=== PATIENT | male | born 1975 | race Caucasian/White ===

== ENCOUNTER 2018-11-26 12:34 | Inpatient (IN) | payer MEDICAID, OTHER ==
[~2018-11-26] VITALS: Ht 182.9 cm; Wt 83.2 kg
[~2018-11-26 12:34] MED LIST: CEPH-376 PO; CLIN300C8 PO; DOXY100T10 PO; OXYC5TAB3 PO
[2018-11-26] MEDS ORDERED: OXYcodone/APAP 5/325MG TABLET ONE (12:49)
[2018-11-26] MEDS ORDERED: OXYcodone/APAP 5/325MG TABLET PO ONE (13:00)
[2018-11-26 13:01] LABS: BASOPHILS # (AUTO) 0.04 x10^3/uL (0-0.1); BASOPHILS % (AUTO) 0 % (0-1); EOSINOPHILS % (AUTO) 1 % (1-7); LYMPHOCYTES # (AUTO) 1.43 x10^3/uL (1-3.4); LYMPHOCYTES % (AUTO) 14 % (22-44); MD NO; MEAN CORPUSCULAR HEMOGLOBIN 28.2 pg (27.5-34.5); MEAN CORPUSCULAR HGB CONC 32.7 g/dL (33.2-36.2); MEAN CORPUSCULAR VOLUME 86.3 fL (81-97); MEAN PLATELET VOLUME 7.6 fL (7.4-10.4); MONOCYTES % (AUTO) 4 % (2-9); NEUTROPHILS # (AUTO) 8.38 x10^3/uL (1.8-6.8); NEUTROPHILS % (AUTO) 81 % (42-75); PLATELET COUNT 271 x10^3/uL (130-400); RED BLOOD COUNT 5.46 x10^6/uL (4.38-5.82); RED CELL DISTRIBUTION WIDTH 17.2 % (9.4-14.8)
[2018-11-26 13:13] LABS: ALANINE AMINOTRANSFERASE 51 U/L (12-78); ALBUMIN 3.5 g/dL (3.4-5.0); ANION GAP 7 mmol/L (5-15); CALCIUM 8.7 mg/dL (8.5-10.1); CHLORIDE 104 mmol/L (98-107)
[2018-11-26 13:15] LABS: ALKALINE PHOSPHATASE 103 U/L (45-117); BILIRUBIN,TOTAL 0.4 mg/dL (0.2-1.0); TOTAL PROTEIN 7.8 g/dL (6.4-8.2)
[2018-11-26 13:19] LABS: SALICYLATE LEVEL < 1.7 mg/dL (2.8-20.0)
[2018-11-26] MEDS ORDERED: ONDANSETRON 2MG/ML, 2ML ONE ×2 (13:41→22:44)
[2018-11-26] MEDS ORDERED: HYDROmorphone 2 MG/ML, 1ML ONE (13:42)
--- NOTE | 2018-11-26 13:45 | NUR ---
pt to xray
[2018-11-26 13:59] LABS: AMPHETAMINE SCREEN, URINE Negative (Negative); BARBITURATE SCREEN, URINE Negative (Negative); CANNABINOID SCREEN, URINE Negative (Negative); COCAINE SCREEN, URINE Negative (Negative); METHADONE SCREEN, URINE Negative (Negative); OPIATE SCREEN, URINE Negative (Negative)
[2018-11-26 14:00] LABS: BENZODIAZEPINE SCREEN, URINE Negative (Negative)
[2018-11-26] MEDS ORDERED: HYDROmorphone 1 MG/ML, 1ML INJ IV ONE (14:00)
[2018-11-26] MEDS ORDERED: ONDANSETRON 2MG/ML, 2ML IVPush ONE (14:00)
--- NOTE | 2018-11-26 14:20 | NUR ---
PT RETURNED FROM RAD, TECH AT BEDSIDE TO ESTABLISH IV
--- NOTE | 2018-11-26 14:24 | NUR ---
UNABLE TO ESTABLISH IV AT THIS TIME, TECH TO GET USIV LINE PLACEMENT
--- NOTE | 2018-11-26 14:59 | NUR ---
US IV ESTABLISHED AND PT MEDICATED PER AUG. AWAITING ORTHO CONSULT
--- NOTE | 2018-11-26 16:27 | NUR ---
PER DIRECTOR OF PROFESSIONAL SERVICES, EMT TO WAIT TO APPLY SPLINTS UNTIL AFTER CT SCANS
--- NOTE | 2018-11-26 16:53 | NUR ---
PT TO CT
[2018-11-26] MEDS ORDERED: BISACODYL 10 MG SUPP PR PRN (17:00)
[2018-11-26] MEDS ORDERED: ACETAMINOPHEN 325 MG TABLET PO PRN (17:00)
[2018-11-26] MEDS ORDERED: POLYETHYLENE GLYCOL 17 GM PACKET PO PRN (17:00)
[2018-11-26] MEDS ORDERED: LABETALOL 5MG/ML, 20ML IVPush PRN (17:00)
[2018-11-26] MEDS ORDERED: ONDANSETRON 2MG/ML, 2ML IVPush PRN (17:00)
[2018-11-26] MEDS ORDERED: ONDANSETRON ODT 4 MG PO PRN (17:00)
[2018-11-26] MEDS ORDERED: IBUPROFEN 600 MG TABLET PO PRN (17:00)
[2018-11-26] MEDS ORDERED: OXYcodone/APAP 5/325MG TABLET PO PRN (17:00)
--- NOTE | 2018-11-26 17:15 | NUR ---
TELEPSYCH CALLED WHILE PT AT CT. WILL NOTIFY THEM WHEN PT RETURNS.
--- NOTE | 2018-11-26 17:29 | NUR ---
ADMITTING MD AT BEDSIDE
--- NOTE | 2018-11-26 17:48 | NUR ---
REPORT TO TALYA HAJI
--- NOTE | 2018-11-26 17:48 | NUR ---
PER ADMITTING PRINT PRODUCTION MANAGER, OUR TECHS NOT TO DO SPLINTS AND THEY WILL COMPLETE UPSTAIRS
[2018-11-26 17:58] LABS: HEMOGLOBIN A1C 5.5 % (4.2-6.3)
[2018-11-26] MEDS ORDERED: HYDROXYZINE PAMOATE 50MG CAP PO PRN (18:00)
[2018-11-26] MEDS: ENOXAPARIN 40 MG/0.4 ML SQ SCH (18:37)
[2018-11-26] MEDS ORDERED: FENTANYL PF 250 MCG/5ML ONE (21:34)
[2018-11-26] MEDS ORDERED: CEFAZOLIN 1,000 MG ONE ×2 (22:22)
[2018-11-26] MEDS ORDERED: DEXAMETHASONE 4 MG/ML, 1ML ONE (22:44)
[2018-11-26] MEDS ORDERED: FENTANYL PF 100 MCG/2ML IV PRN (23:00)
[2018-11-26] MEDS ORDERED: ONDANSETRON 2MG/ML, 2ML IV PRN (23:00)
[2018-11-26] MEDS ORDERED: OXYcodone 5 MG/5 ML ORAL.SOL UDC PO PRN (23:00)
[2018-11-26] MEDS ORDERED: hydrALAzine 20 MG/ML, 1ML IV PRN (23:00)
[2018-11-26] MEDS ORDERED: PROMETHAZINE 25 MG/ML, 1ML IV PRN (23:00)
[2018-11-26] MEDS ORDERED: LABETALOL 5MG/ML, 20ML IV PRN (23:00)
[2018-11-26] MEDS ORDERED: ROCURONIUM 10MG/ML,5ML ONE (23:19)
[2018-11-26] MEDS ORDERED: SUCCINYLCHOLINE 20 MG/ML, 10ML ONE (23:19)
[2018-11-26] MEDS ORDERED: PROPOFOL 10 MG/ML, 20ML ONE (23:19)
[2018-11-26] MEDS ORDERED: KETOROLAC 30 MG/1 ML ONE (23:28)
[2018-11-27] MEDS ORDERED: FENTANYL PF 100 MCG/2ML ONE (00:10)
[2018-11-27] MEDS ORDERED: HYDROmorphone 2 MG/ML, 1ML ONE (00:10)
[2018-11-27] MEDS: HYDROmorphone 2 MG/ML, 1ML IVPush PRN ×10 (00:21→19:35)
[2018-11-27] MEDS ORDERED: LORazepam 2 MG/ML, 1ML ONE (00:51)
[2018-11-27] MEDS ORDERED: LORazepam 2 MG/ML, 1ML IVPush PRN (01:00)
[2018-11-27 01:15] VITALS: BP 143/97
[2018-11-27] MEDS: ARIPIPRAZOLE 10 MG TABLET PO SCH ×2 (01:25→19:36)
[2018-11-27] MEDS: DOXEPIN 25 MG CAPSULE PO SCH ×2 (01:25→19:35)
[2018-11-27] MEDS ORDERED: CEFAZOLIN PMX 1GM/50ML 50 ML IV SCH (02:00)
[2018-11-27] MEDS ORDERED: OXYcodone/APAP 10/325MG TABLET PO PRN (02:30)
[2018-11-27 03:56] VITALS: BP 125/73
[2018-11-27] MEDS: CEFAZOLIN PMX 1GM/50ML 50 ML IV SCH ×3 (06:01→21:30)
[2018-11-27 08:45] VITALS: BP 135/79
[2018-11-27] MEDS: SENNA/DOCUSATE TABLET PO SCH (09:09)
[2018-11-27] MEDS: NAPROXEN 500 MG TABLET PO SCH ×2 (12:06→19:36)
[2018-11-27] MEDS: OXYcodone IR 5MG TABLET PO PRN ×3 (12:06→21:30)
[2018-11-27] MEDS: ACETAMINOPHEN 500 MG TABLET PO SCH ×3 (12:07→23:48)
[2018-11-27 14:20] VITALS: BP 131/85
[2018-11-27] MEDS: ENOXAPARIN 40 MG/0.4 ML SQ SCH (17:36)
[2018-11-27 20:56] VITALS: BP 127/76
[2018-11-27 23:49] VITALS: BP 156/93
[2018-11-28] MEDS: HYDROmorphone 2 MG/ML, 1ML IVPush PRN ×5 (00:07→23:15)
[2018-11-28] MEDS: OXYcodone IR 5MG TABLET PO PRN ×5 (03:07→21:51)
[2018-11-28 06:14] LABS: BASOPHILS # (AUTO) 0.03 x10^3/uL (0-0.1); BASOPHILS % (AUTO) 0 % (0-1); EOSINOPHILS # (AUTO) 0.23 x10^3/uL (0-0.4); EOSINOPHILS % (AUTO) 3 % (1-7); LYMPHOCYTES % (AUTO) 27 % (22-44); MD NO; MEAN CORPUSCULAR HEMOGLOBIN 28.1 pg (27.5-34.5); MEAN CORPUSCULAR HGB CONC 31.9 g/dL (33.2-36.2); MEAN CORPUSCULAR VOLUME 88.1 fL (81-97); MEAN PLATELET VOLUME 7.6 fL (7.4-10.4); MONOCYTES # (AUTO) 0.75 x10^3/uL (0.2-0.8); MONOCYTES % (AUTO) 9 % (2-9); NEUTROPHILS # (AUTO) 4.91 x10^3/uL (1.8-6.8); NEUTROPHILS % (AUTO) 61 % (42-75); PLATELET COUNT 183 x10^3/uL (130-400); RED BLOOD COUNT 4.17 x10^6/uL (4.38-5.82); RED CELL DISTRIBUTION WIDTH 17.3 % (9.4-14.8)
[2018-11-28 06:21] LABS: ANION GAP 4 mmol/L (5-15); CALCIUM 8.1 mg/dL (8.5-10.1); CHLORIDE 109 mmol/L (98-107); CREATININE 0.91 mg/dL (0.7-1.3)
[2018-11-28] MEDS: ACETAMINOPHEN 500 MG TABLET PO SCH ×3 (06:47→18:28)
[2018-11-28 07:58] VITALS: BP 153/89
[2018-11-28] MEDS: POLYETHYLENE GLYCOL 17 GM PACKET PO SCH (09:00)
[2018-11-28] MEDS: GABAPENTIN 100 MG CAPSULE PO SCH ×3 (09:13→21:51)
[2018-11-28] MEDS: NAPROXEN 500 MG TABLET PO SCH ×2 (09:13→21:50)
[2018-11-28] MEDS: SENNA/DOCUSATE TABLET PO SCH (09:13)
[2018-11-28 12:50] VITALS: BP 157/92
[2018-11-28] MEDS: ENOXAPARIN 40 MG/0.4 ML SQ SCH (17:48)
[2018-11-28 21:24] VITALS: BP 158/100
[2018-11-28] MEDS: DOXEPIN 25 MG CAPSULE PO SCH (21:50)
[2018-11-28] MEDS: ARIPIPRAZOLE 10 MG TABLET PO SCH (21:51)
[2018-11-29 02:13] VITALS: BP 160/106
[2018-11-29] MEDS: ACETAMINOPHEN 500 MG TABLET PO SCH ×5 (02:36→23:38)
[2018-11-29] MEDS: OXYcodone IR 5MG TABLET PO PRN ×5 (02:36→21:49)
[2018-11-29 07:03] VITALS: BP 159/108
[2018-11-29] MEDS: GABAPENTIN 100 MG CAPSULE PO SCH ×3 (08:58→20:40)
[2018-11-29] MEDS: POLYETHYLENE GLYCOL 17 GM PACKET PO SCH (08:58)
[2018-11-29] MEDS: SENNA/DOCUSATE TABLET PO SCH (08:58)
[2018-11-29] MEDS: NAPROXEN 500 MG TABLET PO SCH ×2 (08:58→20:40)
[2018-11-29] MEDS: HYDROmorphone 2 MG/ML, 1ML IVPush PRN ×4 (08:58→22:55)
[2018-11-29 14:11] VITALS: BP 156/106
[2018-11-29] MEDS: ENOXAPARIN 40 MG/0.4 ML SQ SCH (18:49)
[2018-11-29 20:07] VITALS: BP 164/103
[2018-11-29] MEDS: ARIPIPRAZOLE 10 MG TABLET PO SCH (20:40)
[2018-11-29] MEDS: DOXEPIN 25 MG CAPSULE PO SCH (20:40)
[2018-11-30 02:29] VITALS: BP 138/88
[2018-11-30] MEDS: OXYcodone IR 5MG TABLET PO PRN ×5 (02:34→20:22)
[2018-11-30] MEDS: ACETAMINOPHEN 500 MG TABLET PO SCH ×3 (06:17→17:31)
[2018-11-30 07:46] VITALS: BP 146/93
[2018-11-30] MEDS: HYDROmorphone 2 MG/ML, 1ML IVPush PRN ×4 (08:05→20:49)
[2018-11-30] MEDS: SENNA/DOCUSATE TABLET PO SCH (08:05)
[2018-11-30] MEDS: GABAPENTIN 100 MG CAPSULE PO SCH ×2 (08:05→15:12)
[2018-11-30] MEDS: NAPROXEN 500 MG TABLET PO SCH ×2 (08:05→20:22)
[2018-11-30] MEDS: POLYETHYLENE GLYCOL 17 GM PACKET PO SCH (08:06)
[2018-11-30 14:01] VITALS: BP 135/85
[2018-11-30 14:03] VITALS: BP 104/70
[2018-11-30] MEDS: ENOXAPARIN 40 MG/0.4 ML SQ SCH (17:33)
[2018-11-30 20:10] VITALS: BP 157/96
[2018-11-30] MEDS: ARIPIPRAZOLE 10 MG TABLET PO SCH (20:23)
[2018-11-30] MEDS: DOXEPIN 25 MG CAPSULE PO SCH (20:23)
[2018-11-30] MEDS: GABAPENTIN 300 MG CAPSULE PO SCH (20:24)
[2018-12-01] MEDS: ACETAMINOPHEN 500 MG TABLET PO SCH ×4 (00:16→17:57)
[2018-12-01] MEDS: OXYcodone IR 5MG TABLET PO PRN ×5 (00:21→21:19)
[2018-12-01 04:00] VITALS: BP 161/102
[2018-12-01] MEDS: HYDROmorphone 2 MG/ML, 1ML IVPush PRN ×3 (05:19→20:09)
[2018-12-01 07:30] LABS: BASOPHILS # (AUTO) 0.03 x10^3/uL (0-0.1); BASOPHILS % (AUTO) 1 % (0-1); EOSINOPHILS # (AUTO) 0.34 x10^3/uL (0-0.4); EOSINOPHILS % (AUTO) 7 % (1-7); LYMPHOCYTES # (AUTO) 1.37 x10^3/uL (1-3.4); LYMPHOCYTES % (AUTO) 28 % (22-44); MD NO; MEAN CORPUSCULAR HEMOGLOBIN 27.6 pg (27.5-34.5); MEAN CORPUSCULAR HGB CONC 31.8 g/dL (33.2-36.2); MEAN CORPUSCULAR VOLUME 86.8 fL (81-97); MEAN PLATELET VOLUME 7.2 fL (7.4-10.4); MONOCYTES # (AUTO) 0.52 x10^3/uL (0.2-0.8); MONOCYTES % (AUTO) 11 % (2-9); NEUTROPHILS # (AUTO) 2.71 x10^3/uL (1.8-6.8); NEUTROPHILS % (AUTO) 55 % (42-75); PLATELET COUNT 193 x10^3/uL (130-400); RED CELL DISTRIBUTION WIDTH 17.8 % (9.4-14.8)
[2018-12-01 07:38] LABS: ANION GAP 5 mmol/L (5-15); CALCIUM 8.6 mg/dL (8.5-10.1); CHLORIDE 102 mmol/L (98-107); CREATININE 0.98 mg/dL (0.7-1.3)
[2018-12-01] MEDS: GABAPENTIN 300 MG CAPSULE PO SCH ×3 (07:42→21:19)
[2018-12-01] MEDS: SENNA/DOCUSATE TABLET PO SCH (07:42)
[2018-12-01] MEDS: NAPROXEN 500 MG TABLET PO SCH ×2 (07:42→21:20)
[2018-12-01] MEDS: POLYETHYLENE GLYCOL 17 GM PACKET PO SCH (07:43)
[2018-12-01 07:45] VITALS: BP 149/80
[2018-12-01 13:25] VITALS: BP 137/84
[2018-12-01] MEDS: ENOXAPARIN 40 MG/0.4 ML SQ SCH (17:57)
[2018-12-01 19:12] VITALS: BP 159/92
[2018-12-01] MEDS: DOXEPIN 25 MG CAPSULE PO SCH (21:19)
[2018-12-01] MEDS: ARIPIPRAZOLE 10 MG TABLET PO SCH (21:20)
[2018-12-02] MEDS: ACETAMINOPHEN 500 MG TABLET PO SCH ×4 (00:23→18:37)
[2018-12-02 00:27] VITALS: BP 136/89
[2018-12-02] MEDS: HYDROmorphone 2 MG/ML, 1ML IVPush PRN ×3 (03:36→15:12)
[2018-12-02] MEDS: OXYcodone IR 5MG TABLET PO PRN ×3 (05:32→20:15)
[2018-12-02 07:20] VITALS: BP 142/90
[2018-12-02] MEDS: SENNA/DOCUSATE TABLET PO SCH (08:53)
[2018-12-02] MEDS: GABAPENTIN 300 MG CAPSULE PO SCH ×3 (08:53→20:16)
[2018-12-02] MEDS: POLYETHYLENE GLYCOL 17 GM PACKET PO SCH (08:53)
[2018-12-02] MEDS: NAPROXEN 500 MG TABLET PO SCH ×2 (09:04→20:16)
[2018-12-02] MEDS ORDERED: POLYETHYLENE GLYCOL 17 GM PACKET PO PRN (12:30)
[2018-12-02] MEDS ORDERED: QUETIAPINE 100MG TABLET PO ONE (14:00)
[2018-12-02 14:06] VITALS: BP 147/88
[2018-12-02] MEDS ORDERED: QUETIAPINE 25MG TABLET ONE (15:07)
[2018-12-02] MEDS: ENOXAPARIN 40 MG/0.4 ML SQ SCH (18:37)
[2018-12-02] MEDS: DOXEPIN 25 MG CAPSULE PO SCH (20:15)
[2018-12-02 20:56] VITALS: BP 143/90
[2018-12-02] MEDS ORDERED: QUETIAPINE 100MG TABLET PO SCH (21:00)
[2018-12-03] MEDS: ACETAMINOPHEN 500 MG TABLET PO SCH ×3 (00:22→11:54)
[2018-12-03] MEDS: OXYcodone IR 5MG TABLET PO PRN ×3 (00:22→08:41)
[2018-12-03 02:13] VITALS: BP 131/84
[2018-12-03 07:05] VITALS: BP 137/80
[2018-12-03] MEDS: NAPROXEN 500 MG TABLET PO SCH (08:40)
[2018-12-03] MEDS: SENNA/DOCUSATE TABLET PO SCH (08:40)
[2018-12-03] MEDS: GABAPENTIN 300 MG CAPSULE PO SCH ×2 (08:40→15:27)
[2018-12-03] MEDS: POLYETHYLENE GLYCOL 17 GM PACKET PO SCH (08:41)
[2018-12-03] MEDS: QUETIAPINE 100MG TABLET PO SCH ×2 (08:41→12:50)
[2018-12-03] MEDS ORDERED: APAP/CODEINE 300/30MG TABLET PO PRN (11:00)
[2018-12-03] MEDS ORDERED: GABA300C10 PO (11:30)
[2018-12-03] MEDS ORDERED: QUET100T PO ×2 (11:30)
[2018-12-03] MEDS ORDERED: NAPR-856 PO (11:30)
[2018-12-03] MEDS ORDERED: DOXE25CA PO (11:30)
[2018-12-03] MEDS ORDERED: SENN1TAB19 PO (11:30)
[2018-12-03] MEDS ORDERED: TRAM50TA2 PO (11:30)
[2018-12-03] MEDS ORDERED: HYDR50CA2 PO (11:30)
[2018-12-03] MEDS ORDERED: ACET1TAB64 PO (11:30)
[2018-12-03] MEDS ORDERED: ACET500T71 PO (11:30)
[2018-12-03] MEDS ORDERED: ENOX40SY4 SQ (11:30)
[2018-12-03 13:50] VITALS: BP 148/87
== END 2018-12-03 16:28 | DRG 511 ==
LOC: ED 13:53 → EDIP 16:52 → 4NOR 18:02
PROVIDERS: ADMIT Internal Medicine; ATTEND Internal Medicine
PROC: 01N50ZZ Release Median Nerve, Open Approach (ICD-10-PCS; principal; 2018-11-26 20:30)
PROC: 0PHH05Z Insertion of External Fixation Device into Right Radius, Open Approach (ICD-10-PCS; 2018-11-26 20:30)
DX: S52.611A Displaced fracture of right ulna styloid process, initial encounter for closed fracture (principal); F11.20 Opioid dependence, uncomplicated; F15.20 Other stimulant dependence, uncomplicated; F25.9 Schizoaffective disorder, unspecified; F41.9 Anxiety disorder, unspecified; F90.9 Attention-deficit hyperactivity disorder, unspecified type; S92.002A Unspecified fracture of left calcaneus, initial encounter for closed fracture; W18.39XA Other fall on same level, initial encounter; I10 Essential (primary) hypertension; K59.00 Constipation, unspecified; S52.571A Other intraarticular fracture of lower end of right radius, initial encounter for closed fracture; T14.91XA Suicide attempt, initial encounter; Z79.899 Other long term (current) drug therapy; Z81.8 Family history of other mental and behavioral disorders; Z86.73 Personal history of transient ischemic attack (TIA), and cerebral infarction without residual deficits; Z91.19 Patient's noncompliance with other medical treatment and regimen; Z87.891 Personal history of nicotine dependence; Y93.89 Activity, other specified; Y92.89 Other specified places as the place of occurrence of the external cause; Y99.8 Other external cause status
CPT/HCPCS: 36415; 72050; 72072; 72100; 76000; 80048; 80053; 80307; 83036; 85025; 96374; 96375; C1713; G0378; J0690; J1100; J1170; J1650; J1885; J2405; J2704; J3010; J0330

== ENCOUNTER 2019-01-06 09:57 | Emergency (ER) | payer MEDICAID, OTHER ==
[~2019-01-06] VITALS: Ht 182.9 cm; Wt 90.0 kg
[2019-01-06 11:58] VITALS: BP 154/111
== END 2019-01-06 12:12 | disposition home or self-care (01) ==
LOC: ED 11:12
DX: Z45.2 Encounter for adjustment and management of vascular access device (principal)
CPT/HCPCS: 36415; 36573; 71045; 80048; 82040; 85025; 99284; C1751

== ENCOUNTER 2019-01-07 14:36 | Emergency (ER) | payer OTHER ==
[~2019-01-07] VITALS: Ht 182.9 cm; Wt 104.0 kg
[2019-01-07 19:14] VITALS: BP 134/78
== END 2019-01-07 19:16 | disposition home or self-care (01) ==
LOC: ED 14:48
DX: F33.3 Major depressive disorder, recurrent, severe with psychotic symptoms (principal); Z45.2 Encounter for adjustment and management of vascular access device; R45.851 Suicidal ideations
CPT/HCPCS: 37197; 71045; 76882; 76937; 99285; C1769; C1773; C1894; J3010; 99156; 99157; J2310